=== PATIENT | female | born 1975 | race Hispanic/Latino ===

== ENCOUNTER 2018-05-12 11:34 | Emergency (ER) | payer SELFPAY ==
[2018-05-12] MEDS ORDERED: LIDOCAINE 2% MPF 5 ML VIAL ONE (12:16)
[2018-05-12] MEDS ORDERED: DOXYCYCLINE 100 MG CAP PO ONE (12:17)
[2018-05-12] MEDS ORDERED: TETANUS & DIPHTHERIA TOX,ADULT 0.5 ML VIAL ONE (12:17)
[2018-05-12] MEDS ORDERED: LIDOCAINE 1% MPF 5 ML VIAL ONE (12:26)
--- NOTE | 2018-05-12 13:43 | ER ---
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 Transition of aj care: patient was not received from another setting of care. Onset of symptoms was May 12, 2018 at 12:07. Risk Assessment: Do you want to hurt yourself or someone else? Patient reports no desire to harm self or others. Initial Sepsis Screen: Does the patient meet any 2 criteria? No. Patient's initial sepsis screen is negative. Does the patient have a suspected source of infection? No. Patient's initial sepsis screen is negative. Care prior to arrival: None. 12:06 Method Of Arrival: Wheelchair aj 12:06 Acuity: NANDO 4 aj Triage Assessment: 12:07 General: Appears in no apparent distress. comfortable, Behavior is calm, cooperative, aj appropriate for age. Pain: Complains of pain in ball of left foot. Neuro: Level of Consciousness is awake, alert, obeys commands, Oriented to person, place, time, situation, Appropriate for age. Respiratory: Airway is patent Respiratory effort is even, unlabored, Respiratory pattern is regular, symmetrical. Derm: Skin is intact, is healthy with good turgor, Skin is pink, warm \T\ dry. normal. Injury Description: Foreign body is located ball of left foot. 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 - Social history:: Smoking status: Patient/guardian denies using tobacco. - Ebola Screening: : Patient negative for fever greater than or equal to 101.5 degrees Fahrenheit, and additional compatible Ebola Virus Disease symptoms Patient denies exposure to infectious person Patient denies travel to an Ebola-affected area in the 21 days before illness onset No symptoms or risks identified at this time. Screenin:26 Abuse screen: Denies threats or abuse. Nutritional screening: No deficits noted. em Tuberculosis screening: No symptoms or risk factors identified. Fall Risk None identified. Assessment: 12:30 General: Appears in no apparent distress. uncomfortable, Behavior is cooperative, em crying. Pain: Complains of pain in left foot Pain currently is 10 out of 10 on a pain scale. Neuro: Level of Consciousness is awake, alert, obeys commands, Oriented to person, place, time, situation. Cardiovascular: Capillary refill < 3 seconds Patient's skin is warm and dry. Respiratory: Airway is patent Respiratory effort is even, unlabored, Respiratory pattern is regular, symmetrical. GI: Abdomen is round non-distended. EENT: No signs and/or symptoms were reported regarding the EENT system. Derm: fish hook in left foot noted. Musculoskeletal: Range of motion: intact in all extremities. 13:35 Reassessment: Patient appears in no apparent distress at this time. Patient and/or em family updated on plan of care and expected duration. Pain level reassessed. Patient is alert, oriented x 3, equal unlabored respirations, skin warm/dry/pink. Patient states feeling better. Patient states symptoms have improved. Vital Signs: 12:07 BP 132 / 74; Pulse 72; Resp 18; Temp 97.4; Pulse Ox 100% on R/A; Weight 108.86 kg; aj Height 5 ft. 6 in. (167.64 cm); 12:50 BP 124 / 62; Pulse 60; Resp 16; Pulse Ox 98% on R/A; mh5 13:30 BP 134 / 75; Pulse 61; Resp 18; Pulse Ox 99% on R/A; Pain 0/10; em 12:07 Body Mass Index 38.74 (108.86 kg, 167.64 cm) ED Course: 11:37 Patient arrived in ED. rg4 12:06 Luz Marina Sturat FNP-C is [facility]. snw 12:06 Remi Mcbride MD is Attending Physician. snw 12:07 Triage completed. aj 12:07 Arm band placed on left wrist. Patient placed in an exam room. aj 12:09 Irineo Guy LVN is Primary Nurse. em 12:26 Patient has correct armband on for positive identification. Bed in low position. Call em light in reach. Adult w/ patient. 12:26 No provider procedures requiring assistance completed. Patient did not have IV access em during this emergency room visit. 13:18 Foot Left 3 View XRAY In Process Unspecified. 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 Exp: em 07/10/2020. Lot #: [id number]. } Route: IM; Site: right deltoid; 13:40 Follow up: Response: No adverse reaction em 13:59 Drug: [place] (7.5 mg-325 mg) 1 tabs Route: PO; em 14:00 Follow up: Response: Medication administered at discharge. em Outcome: 13:42 Discharge ordered by MD. jones 14:00 Discharged to home ambulatory. em 14:00 Condition: good 14:00 Discharge instructions given to patient, Instructed on discharge instructions, follow up and referral plans. medication usage, Demonstrated understanding of instructions, follow-up care, medications, Prescriptions given X 2. 14:04 Patient left the ED. em Signatures: Dispatcher [employer] Cecilia Johnston RN RN aj Therrien, Shelly, U.S. COMMISSIONER-Cr U.S. COMMISSIONER-Irineo Ferreira, FOOT GATHERER FOOT GATHERER Estrella Sahh [facility] Cathie Sweeney [facility]
--- NOTE | 2018-05-12 13:43 | EDPHYS ---
Physician Documentation [facility] Name: Radha Harris Age: 42 yrs Sex: Female : 1975 Arrival Date: 05/12/2018 Time: 11:37 Bed 19 Private MD: ED Physician Remi Mcbride HPI: 05/12 12:42 This 42 yrs old Female presents to ER via Wheelchair with complaints of FISH snw HOOK IN FOOT. 12:42 Onset: The symptoms/episode began/occurred suddenly, just prior to arrival. Associated snw signs and symptoms: Pertinent positives: pain. Modifying factors: The patient symptoms are alleviated by remaining still. The patient has not experienced similar symptoms in the past. The patient has not recently seen a physician. 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 - Social history:: Smoking status: Patient/guardian denies using tobacco. - Ebola Screening: : Patient negative for fever greater than or equal to 101.5 degrees Fahrenheit, and additional compatible Ebola Virus Disease symptoms Patient denies exposure to infectious person Patient denies travel to an Ebola-affected area in the 21 days before illness onset No symptoms or risks identified at this time. ROS: 12:41 Constitutional: Negative for fever, chills, and weight loss, Eyes: Negative for injury, snw pain, redness, and discharge, ENT: Negative for injury, pain, and discharge, Neck: Negative for injury, pain, and swelling, Cardiovascular: Negative for chest pain, palpitations, and edema, Respiratory: Negative for shortness of breath, cough, wheezing, and pleuritic chest pain, Abdomen/GI: Negative for abdominal pain, nausea, vomiting, diarrhea, and constipation, Back: Negative for injury and pain, : Negative for injury, bleeding, discharge, and swelling, Skin: Negative for injury, rash, and discoloration, Neuro: Negative for headache, weakness, numbness, tingling, and seizure. 12:41 MS/extremity: Positive for injury or acute deformity, pain, tenderness, foreign body to left medial foot. Exam: 12:40 Constitutional: This is a well developed, well nourished patient who is awake, alert, snw and in no acute distress. Head/Face: Normocephalic, atraumatic. Eyes: Pupils equal round and reactive to light, extra-ocular motions intact. Lids and lashes normal. Conjunctiva and sclera are non-icteric and not injected. Cornea within normal limits. Periorbital areas with no swelling, redness, or edema. ENT: Nares patent. No nasal discharge, no septal abnormalities noted. Tympanic membranes are normal and external auditory canals are clear. Oropharynx with no redness, swelling, or masses, exudates, or evidence of obstruction, uvula midline. Mucous membranes moist. Neck: Trachea midline, no thyromegaly or masses palpated, and no cervical lymphadenopathy. Supple, full range of motion without nuchal rigidity, or vertebral point tenderness. No Meningismus. Chest/axilla: Normal chest wall appearance and motion. Nontender with no deformity. No lesions are appreciated. Cardiovascular: Regular rate and rhythm with a normal S1 and S2. No gallops, murmurs, or rubs. Normal PMI, no JVD. No pulse deficits. Respiratory: Lungs have equal breath sounds bilaterally, clear to auscultation and percussion. No rales, rhonchi or wheezes noted. No increased work of breathing, no retractions or nasal flaring. Abdomen/GI: Soft, non-tender, with normal bowel sounds. No distension or tympany. No guarding or rebound. No evidence of tenderness throughout. Back: No spinal tenderness. No costovertebral tenderness. Full range of motion. Skin: Warm, dry with normal turgor. Normal color with no rashes, no lesions, and no evidence of cellulitis. Neuro: Awake and alert, GCS 15, oriented to person, place, time, and situation. Cranial nerves II-XII grossly intact. Motor strength 5/5 in all extremities. Sensory grossly intact. Cerebellar exam normal. Normal gait. 12:40 Musculoskeletal/extremity: left foot with foreign body. Vital Signs: 12:07 BP 132 / 74; Pulse 72; Resp 18; Temp 97.4; Pulse Ox 100% on R/A; Weight 108.86 kg; aj Height 5 ft. 6 in. (167.64 cm); 12:50 BP 124 / 62; Pulse 60; Resp 16; Pulse Ox 98% on R/A; mh5 13:30 BP 134 / 75; Pulse 61; Resp 18; Pulse Ox 99% on R/A; Pain 0/10; em 12:07 Body Mass Index 38.74 (108.86 kg, 167.64 cm) aj Procedures: 12:42 Foreign Body Removal: a fishhook, from the left foot, by using a hemostat, incising to snw remove, using lidocaine 1% without epinephrine to anesthesize the area, Dressinx4s were used to dress the wound, The patient tolerated the removal well. MDM: 12:06 Patient medically screened. snw 13:46 Data reviewed: vital signs, nurses notes. Data interpreted: Pulse oximetry: on room air snw is 98 %. Interpretation: normal. Counseling: I had a detailed discussion with the patient and/or guardian regarding: the historical points, exam findings, and any diagnostic results supporting the discharge/admit diagnosis, radiology results, the need for outpatient follow up, to return to the emergency department if symptoms worsen or persist or if there are any questions or concerns that arise at home. Special discussion: I discussed in detail with the patient the higher chance of wound infection based on his presenting history. Based on the history and exam findings, there is no indication for further emergent testing or inpatient evaluation. I discussed with the patient/guardian the need to see the primary care provider for further evaluation of the symptoms. 05/12 12:38 Order name: Foot Left 3 View XRAY snw 05/12 13:45 Order name: Wound dressing; Complete Time: 13:59 snw Administered Medications: 12:20 Drug: Lidocaine (1 %) 1 vials {Note: administered by HUEY Raza.} Volume: 5 ml; Route: em Infiltration; Site: wound; 13:40 Follow up: Response: No adverse reaction; Pain is decreased em 12:33 Drug: Doxycycline 100 mg Route: PO; em 13:40 Follow up: Response: No adverse reaction em 12:33 Drug: Tetanus-Diphtheria Toxoid Adult 0.5 ml {Insurance Claims Analyst: [employer]. Exp: em 07/10/2020. Lot #: [id number]. } Route: IM; Site: right deltoid; 13:40 Follow up: Response: No adverse reaction em 13:59 Drug: [place] (7.5 mg-325 mg) 1 tabs Route: PO; em 14:00 Follow up: Response: Medication administered at discharge. em Disposition: 05/12/18 13:42 Discharged to Home. Impression: Puncture wound with foreign body of foot. - Condition is Stable. - Discharge Instructions: Puncture Wound, VIS, Tetanus, Diphtheria (Td) - CDC, Foreign Body. - Prescriptions for Doxycycline Hyclate 100 mg Oral Tablet - take 1 tablet by ORAL route every 12 hours; 20 tablet. Diclofenac Sodium 75 mg Oral Tablet Sustained Release - take 1 tablet by ORAL route 2 times per day; 30 tablet. - Medication Reconciliation Form, Thank You Letter, Antibiotic Education, Prescription Opioid Use form. - Follow up: Private Physician; When: 2 - 3 days; Reason: Recheck today's complaints, Continuance of care, Re-evaluation by your physician. Follow up: Emergency Department; When: As needed; Reason: Worsening of condition. Addendum: 05/13/2018 15:18 Co-signature as Attending Physician, Remi Mcbride MD I agree with the assessment and c vicente plan of care. Signatures: Dispatcher [employer] Cecilia Johnston RN RN aj Anderson, Corey, MD MD cha Therrien, Shelly, INSTALL AND REPAIR TECHNICIAN-C INSTALL AND REPAIR TECHNICIAN-Csnw Irineo Guy, LABORER [employer] LABORER [employer] em Corrections: (The following items were deleted from the chart) 05/12 14:04 13:42 05/12/2018 13:42 Discharged to Home. Impression: Puncture wound with foreign body em of foot. Condition is Stable. Forms are Medication Reconciliation Form, Thank You Letter, Antibiotic Education, Prescription Opioid Use. Follow up: Private Physician; When: 2 - 3 days; Reason: Recheck today's complaints, Continuance of care, Re-evaluation by your physician. Follow up: Emergency Department; When: As needed; Reason: Worsening of condition. snw
[2018-05-12] MEDS ORDERED: HYDROCODONE/APAP 7.5/325 MG TAB ONE (13:57)
--- NOTE | 2018-05-12 14:33 | RAD REPORT ---
EXAM DESCRIPTION: RAD - Foot Left 3 View - 05/12/2018 1:18 pm CLINICAL HISTORY: Pain, history fish hook injury COMPARISON: None. FINDINGS: Markers were placed on the AP projecting indicating sites of penetrating injury along the medial margin of the first metatarsal. No fracture, dislocation or periosteal reaction. No acute or destructive bony process. No air or foreign body in the soft tissues. IMPRESSION: No foreign body in the soft tissues. No acute bone or joint finding.
== END 2018-05-12 14:04 | disposition home or self-care (01) ==
LOC: ER 11:34
PROC: 0JCR3ZZ Extirpation of Matter from Left Foot Subcutaneous Tissue and Fascia, Percutaneous Approach (ICD-10-PCS; principal; 2018-05-12)
DX: S91.342A Puncture wound with foreign body, left foot, initial encounter (principal); Z23 Encounter for immunization
CPT/HCPCS: 90714; 99283